=== PATIENT | female | born 1980 | race Caucasian/White ===

== ENCOUNTER 2018-05-27 06:21 | Inpatient (IN) | payer BC ==
[2018-05-27] MEDS ORDERED: CLINDAMYCIN 900 MG/50 ML D5W IVPB IVPB (07:00)
[2018-05-27] MEDS ORDERED: DEXAMETHASONE 4 MG/ML 1 ML INJ (07:00)
[2018-05-27] MEDS ORDERED: FENTAnyl 50 MCG/ML VIAL (07:15)
[2018-05-27] MEDS ORDERED: LIDOCAINE 2% (SDV) 5 ML INJ (07:15)
[2018-05-27] MEDS ORDERED: PROPOFOL 20 ML (07:15)
[2018-05-27] MEDS ORDERED: MIDAZOLAM 1 MG/ML 2 ML INJ (07:15)
[2018-05-27] MEDS ORDERED: ACETAMINOPHEN 1000MG/100ML IV 100 ML (07:15)
[2018-05-27] MEDS ORDERED: ROCURONIUM 50 MG INJ (07:15)
[2018-05-27] MEDS ORDERED: SUCCINYLCHOLINE CHLORIDE 100 MG/5 ML SYG IV (07:15)
[2018-05-27] MEDS ORDERED: ONDANSETRON 4 MG INJ (07:16)
[2018-05-27] MEDS ORDERED: SUGAMMADEX SODIUM 200 MG/2 ML VIAL IV (07:16)
[2018-05-27] MEDS ORDERED: FENTAnyl 50 MCG/ML VIAL IV (07:30)
[2018-05-27] MEDS ORDERED: IPRATROPIUM (NEB) 0.5 MG/2.5 ML AMP HHN (07:30)
[2018-05-27] MEDS ORDERED: LEVALBUTEROL (NEB) 1.25 MG/0.5 ML AMP HHN (07:30)
[2018-05-27] MEDS ORDERED: ALBUMIN HUMAN 5% 250 ML IV (07:30)
[2018-05-27] MEDS ORDERED: LABETALOL HCL 20MG INJ IV (07:30)
[2018-05-27] MEDS ORDERED: EPHEDrine SULFATE 50 MG/5 ML SYG IV (07:30)
[2018-05-27] MEDS ORDERED: HYDROmorphONE 1 MG/5 ML IV SYRINGE IV ×2 (07:30)
[2018-05-27] MEDS ORDERED: hydrALAzine 20 MG INJ IV (07:30)
[2018-05-27] MEDS ORDERED: DIPHENHYDRAMINE 50 MG INJ IV (07:30)
[2018-05-27] MEDS ORDERED: LACTATED RINGER'S 1,000 ML IV (07:30)
[2018-05-27] MEDS ORDERED: HALOPERIDOL 5 MG INJ IV (07:30)
[2018-05-27] MEDS ORDERED: MEPERIDINE 25 MG INJ IV (07:30)
[2018-05-27] MEDS ORDERED: HYDROmorphONE 2 MG/ML SYG (07:56)
[2018-05-27] MEDS ORDERED: KETAMINE (50 MG/ML) 10 ML VIAL (08:13)
[2018-05-27] MEDS: GELATIN SIZE 100 SPONGE (08:41)
[2018-05-27] MEDS: POLYMYXIN/BACITRACIN 1L IRRIG (08:41)
[2018-05-27] MEDS: THROMBIN 5000 UNIT VIAL (08:41)
[2018-05-27] MEDS: BUPIVACAINE 0.25%/EPI (SDV) 30 ML INJ (08:41)
[2018-05-27] MEDS ORDERED: METOPROLOL 5 MG INJ ×2 (08:56→10:22)
[2018-05-27] MEDS ORDERED: PROCHLORPERAZINE 10 MG TAB PO (13:00)
[2018-05-27] MEDS ORDERED: ONDANSETRON 4 MG INJ IV (13:00)
[2018-05-27] MEDS ORDERED: HYDROCODONE/APAP (5/325) TAB PO (13:00)
[2018-05-27] MEDS ORDERED: NALOXONE (0.4 MG/ML) INJ IV (13:00)
[2018-05-27] MEDS ORDERED: ACETAMINOPHEN 325 MG TAB PO (13:00)
[2018-05-27] MEDS ORDERED: NACL 0.9% 3 ML SYG IV (13:00)
[2018-05-27] MEDS ORDERED: AL HYDROX/MG HYDROX/SIMETH 30 ML CUP PO (13:00)
[2018-05-27] MEDS: DEXAMETHASONE 4 MG/ML 1 ML INJ IV (13:14)
[2018-05-27] MEDS: VANCOMYCIN 1 GM (PMX) 250 ML IVPB (13:14)
[2018-05-27] MEDS: HYDROmorphONE 1 MG/5 ML IV SYRINGE IV ×2 (13:15→13:34)
[2018-05-27] MEDS: ONDANSETRON 4 MG INJ IV (13:15)
[2018-05-27] MEDS: FENTAnyl 50 MCG/ML VIAL IV ×2 (13:16→13:35)
[2018-05-27] MEDS: HYDROmorphONE 0.2 MG/ML PCA IV ×2 (13:47→22:58)
[2018-05-27] MEDS: SOD CHLORIDE 0.9% 1,000 ML IV ×2 (15:46→22:41)
[2018-05-27] MEDS: SUCRALFATE 1 GM TAB PO ×2 (17:45→20:33)
[2018-05-27] MEDS: PANTOPRAZOLE (EC) 40 MG TAB PO (18:08)
[2018-05-27] MEDS: LIDOCAINE 5% PATCH TD (20:33)
[2018-05-27] MEDS: MONTELUKAST 10 MG TAB PO (20:34)
[2018-05-27] MEDS: METHOCARBAMOL 500 MG TAB PO (23:43)
[2018-05-28] MEDS: VANCOMYCIN 1 GM (PMX) 250 ML IVPB (01:10)
[2018-05-28] MEDS: SOD CHLORIDE 0.9% 1,000 ML IV (01:11)
[2018-05-28] MEDS: ALBUTEROL/IPRATROPIUM (NEB) 3 ML AMP HHN ×5 (04:26→21:04)
[2018-05-28] MEDS: PANTOPRAZOLE (EC) 40 MG TAB PO ×2 (05:00→17:45)
[2018-05-28 05:24] LABS: HEMATOCRIT 33.1 % (37.0-47.0); HEMOGLOBIN 10.8 g/dl (12.0-16.0)
[2018-05-28 05:47] LABS: ANION GAP 8 (5-13); BLOOD UREA NITROGEN 5 mg/dl (7-20); CALCIUM 8.4 mg/dl (8.4-10.2); CARBON DIOXIDE 27 mmol/L (21-31); CHLORIDE 106 mmol/L (97-110); CREATININE 0.46 mg/dl (0.44-1.00); Estimated GFR > 60 mL/min (>60); GLUCOSE 146 mg/dl (70-220); SODIUM 141 mmol/L (135-144)
[2018-05-28] MEDS: SUCRALFATE 1 GM TAB PO ×4 (07:46→20:48)
[2018-05-28] MEDS ORDERED: HYDROmorphONE 0.5 MG/0.5 ML SYG IV (08:00)
[2018-05-28] MEDS: DOCUSATE SODIUM 100 MG CAP PO ×2 (08:59→21:00)
[2018-05-28] MEDS: FLUTICASONE 0.05% 16 GM NAS SPRAY NASAL (09:00)
[2018-05-28] MEDS: LIDOCAINE 5% PATCH TD (09:59)
[2018-05-28] MEDS: METHOCARBAMOL 500 MG TAB PO ×2 (09:59→17:44)
[2018-05-28] MEDS: HYDROCODONE/APAP (5/325) TAB PO ×3 (10:00→20:48)
[2018-05-28] MEDS: LUBIPROSTONE 8 MCG CAPSULE PO (11:24)
[2018-05-28] MEDS ORDERED: ZOLPIDEM 5 MG TAB PO (15:00)
[2018-05-28] MEDS: MONTELUKAST 10 MG TAB PO (20:48)
[2018-05-28] MEDS: PREGABALIN 25 MG CAP PO (20:48)
[2018-05-29] MEDS: ZOLPIDEM 5 MG TAB PO (00:26)
[2018-05-29] MEDS: ALBUTEROL/IPRATROPIUM (NEB) 3 ML AMP HHN ×3 (01:07→08:36)
[2018-05-29] MEDS: PANTOPRAZOLE (EC) 40 MG TAB PO (06:11)
[2018-05-29] MEDS: HYDROCODONE/APAP (5/325) TAB PO (06:13)
[2018-05-29] MEDS: SUCRALFATE 1 GM TAB PO (07:37)
[2018-05-29] MEDS: PREGABALIN 25 MG CAP PO (08:57)
[2018-05-29] MEDS: LUBIPROSTONE 8 MCG CAPSULE PO (08:57)
[2018-05-29] MEDS: METHOCARBAMOL 500 MG TAB PO (09:00)
[2018-05-29] MEDS: DOCUSATE SODIUM 100 MG CAP PO (09:00)
[2018-05-29] MEDS: FLUTICASONE 0.05% 16 GM NAS SPRAY NASAL (09:01)
[2018-05-29] MEDS: LIDOCAINE 5% PATCH TD (09:02)
== END 2018-05-29 09:30 | disposition home or self-care (01) | DRG 518 ==
LOC: REC 06:21 → MS1 13:57
PROC: 0RR30JZ Replacement of Cervical Vertebral Disc with Synthetic Substitute, Open Approach (ICD-10-PCS; principal; 2018-05-27 07:27)
PROC: 4A11X4G Monitoring of Peripheral Nervous Electrical Activity, Intraoperative, External Approach (ICD-10-PCS; 2018-05-27 07:27)
DX: M50.122 Cervical disc disorder at C5-C6 level with radiculopathy (principal); K21.9 Gastro-esophageal reflux disease without esophagitis; K58.9 Irritable bowel syndrome, unspecified; Z87.891 Personal history of nicotine dependence; J45.909 Unspecified asthma, uncomplicated
CPT/HCPCS: 72050; 80048; 85014; 85018; 87086; 94640; 94664; 97116; 97161; 97530